=== PATIENT | female | born 1995 | race Caucasian/White ===

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

== ENCOUNTER → 2017-01-24 | Outpatient (CLI) | payer OTHER ==
--- NOTE | 2017-01-24 09:41 | US ---
EXAMINATION TYPE: US OB >= 14 wk fetus DATE OF EXAM: 01/24/2017 COMPARISON: None CLINICAL HISTORY: Z34.80 Supervision of Normal Growth and kidneys TECHNIQUE: GESTATIONAL AGE / DATING Physician Established: (34 weeks/3 days) EDC: 03/04/2017 Dates by Current Scan: (34 weeks/5 days) EDC: 03/02/2017 SURVEY IUP: Single PLACENTA: Posterior/Right lateral PREVIA: No Previa JORGE: 21.5 cm Polyhydramnios CERVICAL LENGTH (transabdominal: norm > 3.0cm): 3.5 cm BIOMETRY PRESENTATION: Vertex BPD: 8.5 cm 34 weeks / 2 days HC: 32.0 cm 36 weeks / 0 days AC: 31.6 cm 35 weeks / 4 days FL: 6.4 cm 32 weeks / 6 days ESTIMATED WEIGHT IN GRAMS: 2510 grams ESTIMATED WEIGHT IN LBS/OZS: 5 lbs. 9 oz. WEIGHT PERCENTAGE BASED ON ESTABLISHED DATES: 55.0% HC/AC: 1.0 Normal FL/AC: 20.1 Normal HEART RATE: 123 bpm RHYTHM: Normal Bilateral dilated renal pelvis. Right- 7.8 mm. Left- 7.8 mm. IMPRESSION: PETERS FETUS PRESENT IN A VERTEX LIE WITH A GESTATIONAL AGE OF 34 WEEKS 5 DAYS +/- 3 WEEKS. ESTIMA FUNMILAYO DATE OF CONFINEMENT BASED ON THIS EXAMINATION IS 03/02/2017. PLEASE NOTE THAT THERE ARE DILATED RENAL PELVES BILATERALLY. ULTRASOUND NO EARLIER THAN 48 HOURS POST WOULD BE SUGGESTED.
== END | disposition home or self-care (01) ==
LOC: RADUSWWP 07:45
PROVIDERS: ATTEND Obstetrics & Gynecology
DX: Z34.93 Encounter for supervision of normal pregnancy, unspecified, third trimester (principal); Z3A.34 34 weeks gestation of pregnancy
CPT/HCPCS: 76805

== ENCOUNTER → 2017-02-20 | Outpatient (CLI) | payer OTHER ==
--- NOTE | 2017-02-20 11:08 | US ---
EXAMINATION TYPE: US OB >= 14 wk fetus DATE OF EXAM: 02/20/2017 COMPARISON: 10/26/2016 CLINICAL HISTORY: Z34.90 Growth, patient did not fill for exam TECHNIQUE: OBTA GESTATIONAL AGE / DATING Physician Established: (38 weeks/6 days) EDC: 02/28/2017 Dates by LMP: (38 weeks/6 days) EDC: 02/28/2017 Dates by First Scan: (38 weeks/2 days) EDC: 03/04/2017 Dates by Current Scan: (38 weeks/4 days) EDC: 03/02/2017 SURVEY IUP: Single PLACENTA: Fundal PREVIA: No Previa JORGE: 11.5 cm Normal CERVICAL LENGTH (transabdominal: norm > 3.0cm): 3.2 cm BIOMETRY PRESENTATION: Vertex LIE: Longitudinal BPD: 8.9 cm 36 weeks / 1 days HC: 34.1 cm 39 weeks / 2 days AC: 36.5 cm 40 weeks / 3 days FL: 7.4 cm 38 weeks / 0 days ESTIMATED WEIGHT IN GRAMS: 3704 grams ESTIMATED WEIGHT IN LBS/OZS: 8 lbs. 3 oz. WEIGHT PERCENTAGE BASED ON ESTABLISHED DATES: 75% HC/AC: 0.9 Normal FL/AC: 20 Normal HEART RATE: 125 bpm RHYTHM: Normal Dilated renal pelvis bilaterally as noted on prior exam, patient has been assessed with high risk ult rasound, right = 0.9cm, left = 1.2cm IMPRESSION: Single live intrauterine with a sonographic age of 34 weeks and 4 days and estimated date o f delivery of 03/02/2017 on the current examination. Dates are concordant with prior imaging and menst rual dates. There is redemonstration of dilated renal pelvises bilaterally measuring 0.9 cm on the ri ght and 1.2 cm on the left.
== END | disposition home or self-care (01) ==
LOC: RADUSWWP 10:16
PROVIDERS: ATTEND Obstetrics & Gynecology
DX: Z34.90 Encounter for supervision of normal pregnancy, unspecified, unspecified trimester (principal); Z3A.38 38 weeks gestation of pregnancy
CPT/HCPCS: 76805

== ENCOUNTER → 2018-01-01 | Outpatient (CLI) | payer OTHER ==
[2018-01-01 12:28] LABS: Basophils # (A) 0.1 k/uL (0-0.2); Basophils % (A) 1 %; Eosinophils # (A) 0.2 k/uL (0-0.7); Eosinophils % (A) 3 %; HCT 42.1 % (34.0-46.0); HGB 13.8 gm/dL (11.4-16.0); Lymphocytes # (A) 2.7 k/uL (1.0-4.8); Lymphocytes % (A) 39 %; MCHC 32.7 g/dL (31.0-37.0); MCV 85.8 fL (80.0-100.0); Mean Platelet Volume 6.3; Monocytes # (A) 0.3 k/uL (0-1.0); Monocytes % (A) 5 %; Neutrophils # (A) 3.4 k/uL (1.3-7.7); Neutrophils % (A) 51 %; Platelet Count 296 k/uL (150-450); RBC 4.91 m/uL (3.80-5.40); RDW 12.9 % (11.5-15.5); WBC 6.8 k/uL (4.0-11.0)
[2018-01-01 12:52] LABS: ALT 22 U/L (9-52); AST 19 U/L (14-36); Albumin 3.9 g/dL (3.5-5.0); Alkaline Phosphatase 67 U/L (38-126); Anion Gap 10 mmol/L; Blood Urea Nitrogen 8 mg/dL (7-17); Calcium 9.2 mg/dL (8.4-10.2); Carbon Dioxide 24 mmol/L (22-30); Chloride 105 mmol/L (98-107); Cholesterol 141 mg/dL (<200); Glucose 86 mg/dL (74-99); HDL Cholesterol 52 mg/dL (40-60); LDL Cholesterol,Calculated 64 mg/dL (0-99); Potassium 4.5 mmol/L (3.5-5.1); Sodium 139 mmol/L (137-145); Total Bilirubin 0.3 mg/dL (0.2-1.3); Total Protein 6.5 g/dL (6.3-8.2); Triglycerides 124 mg/dL (<150)
== END | disposition home or self-care (01) ==
LOC: LABWHC1 11:49
PROVIDERS: ATTEND Family Medicine
DX: Z00.00 Encounter for general adult medical examination without abnormal findings (principal); R51 Headache; R41.3 Other amnesia; Z13.220 Encounter for screening for lipoid disorders; Z71.3 Dietary counseling and surveillance; Z71.82 Exercise counseling; Z68.54 Body mass index [BMI] pediatric, 95th percentile for age to less than 120% of the 95th percentile for age
CPT/HCPCS: 36415; 80053; 80061; 82306; 84443; 85025

== ENCOUNTER 2019-01-07 17:34 | Emergency (ER) | payer OTHER ==
[2019-01-07 17:59] VITALS: RESP 18
[2019-01-07] MEDS ORDERED: KETOROLAC 30 MG/ML 1 ML VIAL IVP STA (18:33)
[2019-01-07] MEDS ORDERED: SODIUM CHLORIDE 0.9% 1,000 ML IV ONE (18:33)
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
[2019-01-07 19:15] LABS: Basophils # (A) 0.1 k/uL (0-0.2); Basophils % (A) 1 %; Eosinophils # (A) 0.2 k/uL (0-0.7); Eosinophils % (A) 2 %; HCT 48.2 % (34.0-46.0); HGB 15.6 gm/dL (11.4-16.0); Lymphocytes # (A) 2.6 k/uL (1.0-4.8); Lymphocytes % (A) 34 %; MCH 28.7 pg (25.0-35.0); MCHC 32.5 g/dL (31.0-37.0); MCV 88.3 fL (80.0-100.0); Mean Platelet Volume 7.3; Monocytes # (A) 0.3 k/uL (0-1.0); Monocytes % (A) 4 %; Neutrophils # (A) 4.4 k/uL (1.3-7.7); Neutrophils % (A) 57 %; Platelet Count 303 k/uL (150-450); RBC 5.45 m/uL (3.80-5.40); RDW 14.8 % (11.5-15.5); WBC 7.7 k/uL (3.8-10.6)
[2019-01-07 19:21] LABS: African American GFR (CKD) >90 (>60 ml/min/1.73 sqM); Anion Gap 9 mmol/L; Blood Urea Nitrogen 8 mg/dL (7-17); Calcium 10.1 mg/dL (8.4-10.2); Carbon Dioxide 26 mmol/L (22-30); Chloride 108 mmol/L (98-107); Creatine Kinase 71 U/L (30-135); Glucose 83 mg/dL (74-99); Potassium 4.6 mmol/L (3.5-5.1); Sodium 143 mmol/L (137-145)
[2019-01-07 19:43] VITALS: BP 113/87; PULSE 73; TEMP 97.9
[2019-01-07 20:22] LABS: Appearance,Urine Clear (Clear); Bilirubin,Urine Negative (Negative); Blood,Urine Negative (Negative); Color,Urine Yellow; Glucose,Urine (UA) Negative (Negative); Ketones,Urine Negative (Negative); Leukocyte Esterase,Urine Negative (Negative); Nitrite,Urine Negative (Negative); Protein,Urine Negative (Negative); Specific Gravity,Urine 1.017 (1.001-1.035); Urobilinogen,Urine <2.0 mg/dL (<2.0)
== END 2019-01-07 21:04 | disposition home or self-care (01) ==
LOC: EC 17:34
DX: M25.531 Pain in right wrist (principal); M25.552 Pain in left hip; M25.551 Pain in right hip; Z79.1 Long term (current) use of non-steroidal anti-inflammatories (NSAID); Z88.0 Allergy status to penicillin; Z91.040 Latex allergy status
CPT/HCPCS: 36415; 80048; 82550; 85025; 81003; 81025; 99284; 96374; 96361 ×2; J1885

== ENCOUNTER 2019-07-28 04:35 | Emergency (ER) | payer OTHER ==
--- NOTE | 2019-07-28 04:54 | ED ---
Nausea/Vomiting/Diarrhea HPI - General Chief complaint: Nausea/Vomiting/Diarrhea Stated complaint: Pain,Nausea Time Seen by Provider: 07/28/19 04:52 Source: patient, RN notes reviewed, old records reviewed Mode of arrival: ambulatory Limitations: no limitations - History of Present Illness Initial comments: This is a 24-year-old female here for evaluation persistent nausea and vomiting no significant diarrhea generalized body aches and pains. No sick contacts no travel history. Denies chance of . Patient is had a decreased appetite for a few days not feeling well MD complaint: nausea, vomiting, abdominal pain -: hour(s) Description of Vomiting: food contents, watery Associated Abdominal Pain: Yes Location: diffuse Radiation: none Severity: mild Severity scale (1-10): 3 Quality: aching Consistency: constant Improves with: none Worsens with: none Context: sick contacts Associated Symptoms: denies other symptoms - Related Data Home Medications Medication Instructions Recorded Confirmed Ibuprofen [Motrin] 800 mg PO Q6H 01/07/19 01/07/19 Allergies Allergy/AdvReac Type Severity Reaction Status Date / Time latex Allergy Unknown Verified 07/28/19 04:44 Penicillins Allergy Unknown Verified 07/28/19 04:44 Childhood Review of Systems ROS Statement: Those systems with pertinent positive or pertinent negative responses have been documented in the HPI. ROS Other: All systems not noted in ROS Statement are negative. Past Medical History Past Medical History: No Reported History Additional Past Medical History / Comment(s): heart murmur, collpased lung History of Any Multi-Drug Resistant Organisms: MRSA Date of last positivie culture/infection: 2002 MDRO Source:: AXILLA Past Surgical History: Orthopedic Surgery Past Psychological History: Anxiety, Depression Smoking Status: Never smoker Past Alcohol Use History: None Reported Past Drug Use History: None Reported General Exam Limitations: no limitations General appearance: alert, in no apparent distress Head exam: Present: atraumatic, normocephalic, normal inspection Eye exam: Present: normal appearance, PERRL, EOMI. Absent: scleral icterus, conjunctival injection, periorbital swelling ENT exam: Present: normal exam, mucous membranes moist Neck exam: Present: normal inspection. Absent: tenderness, meningismus, lymphadenopathy Respiratory exam: Present: normal lung sounds bilaterally. Absent: respiratory distress, wheezes, rales, rhonchi, stridor Cardiovascular Exam: Present: regular rate, normal rhythm, normal heart sounds. Absent: systolic murmur, diastolic murmur, rubs, gallop, clicks GI/Abdominal exam: Present: soft, normal bowel sounds. Absent: distended, tenderness, guarding, rebound, rigid Extremities exam: Present: normal inspection, full ROM, normal capillary refill. Absent: tenderness, pedal edema, joint swelling, calf tenderness Back exam: Present: normal inspection Neurological exam: Present: alert, oriented X3, CN II-XII intact Psychiatric exam: Present: normal affect, normal mood Skin exam: Present: warm, dry, intact, normal color. Absent: rash Course Vital Signs 07/28/19 07/28/19 04:45 06:30 Temperature 97.9 F 98 F Pulse Rate 78 79 Respiratory 14 16 Rate Blood Pressure 124/77 120/70 O2 Sat by Pulse 100 99 Oximetry - Reevaluation(s) Reevaluation #1: medical record is reviewed symptoms improved, no acute findings ok for discharge Medical Decision Making - Medical Decision Making 24 female here for evaluation nausea vomiting body aches pains and chills recent fevers. Labwork normal studies are normal here in the ER patient can be d ischarged home - Lab Data Result diagrams: 07/28/19 05:42 07/28/19 05:42 Lab Results 07/28/19 07/28/19 07/28/19 Range/Units 05:10 05:42 05:42 WBC 10.9 H (3.8-10.6) k/uL RBC 5.24 (3.80-5.40) m/uL Hgb 15.1 (11.4-16.0) gm/dL Hct 47.0 H (34.0-46.0) % MCV 89.5 (80.0-100.0) fL MCH 28.8 (25.0-35.0) pg MCHC 32.1 (31.0-37.0) g/dL RDW 12.4 (11.5-15.5) % Plt Count 324 (150-450) k/uL Neutrophils % 59 % Lymphocytes % 31 % Monocytes % 6 % Eosinophils % 1 % Basophils % 1 % Neutrophils # 6.5 (1.3-7.7) k/uL Lymphocytes # 3.3 (1.0-4.8) k/uL Monocytes # 0.6 (0-1.0) k/uL Eosinophils # 0.2 (0-0.7) k/uL Basophils # 0.1 (0-0.2) k/uL Sodium 143 (137-145) mmol/L Potassium 4.5 (3.5-5.1) mmol/L Chloride 105 (98-107) mmol/L Carbon Dioxide 27 (22-30) mmol/L Anion Gap 11 mmol/L BUN 9 (7-17) mg/dL Creatinine 0.54 (0.52-1.04) mg/dL Est GFR (CKD-EPI)AfAm >90 (>60 ml/min/1.73 sqM) Est GFR (CKD-EPI)NonAf >90 (>60 ml/min/1.73 sqM) Glucose 90 (74-99) mg/dL Calcium 9.6 (8.4-10.2) mg/dL Phosphorus 3.3 (2.5-4.5) mg/dL Magnesium 1.9 (1.6-2.3) mg/dL Total Bilirubin 0.7 (0.2-1.3) mg/dL AST 34 (14-36) U/L ALT 20 (4-34) U/L Alkaline Phosphatase 50 (38-126) U/L Total Protein 7.9 (6.3-8.2) g/dL Albumin 4.7 (3.5-5.0) g/dL Urine Color Urine Appearance (Clear) Urine pH (5.0-8.0) Ur Specific Avalon (1.001-1.035) Urine Protein (Negative) Urine Glucose (UA) (Negative) Urine Ketones (Negative) Urine Blood (Negative) Urine Nitrite (Negative) Urine Bilirubin (Negative) Urine Urobilinogen (<2.0) mg/dL Ur Leukocyte Esterase (Negative) Urine HCG, Qual (Not Detectd) Influenza Type A RNA Not Detected (Not Detectd) Influenza Type B (PCR) Not Detected (Not Detectd) 07/28/19 07/28/19 Range/Units 05:42 05:42 WBC (3.8-10.6) k/uL RBC (3.80-5.40) m/uL Hgb (11.4-16.0) gm/dL Hct (34.0-46.0) % MCV (80.0-100.0) fL MCH (25.0-35.0) pg MCHC (31.0-37.0) g/dL RDW (11.5-15.5) % Plt Count (150-450) k/uL Neutrophils % % Lymphocytes % % Monocytes % % Eosinophils % % Basophils % % Neutrophils # (1.3-7.7) k/uL Lymphocytes # (1.0-4.8) k/uL Monocytes # (0-1.0) k/uL Eosinophils # (0-0.7) k/uL Basophils # (0-0.2) k/uL Sodium (137-145) mmol/L Potassium (3.5-5.1) mmol/L Chloride (98-107) mmol/L Carbon Dioxide (22-30) mmol/L Anion Gap mmol/L BUN (7-17) mg/dL Creatinine (0.52-1.04) mg/dL Est GFR (CKD-EPI)AfAm (>60 ml/min/1.73 sqM) Est GFR (CKD-EPI)NonAf (>60 ml/min/1.73 sqM) Glucose (74-99) mg/dL Calcium (8.4-10.2) mg/dL Phosphorus (2.5-4.5) mg/dL Magnesium (1.6-2.3) mg/dL Total Bilirubin (0.2-1.3) mg/dL AST (14-36) U/L ALT (4-34) U/L Alkaline Phosphatase (38-126) U/L Total Protein (6.3-8.2) g/dL Albumin (3.5-5.0) g/dL Urine Color Light Yellow Urine Appearance Clear (Clear) Urine pH 7.5 (5.0-8.0) Ur Specific [place]on 1.008 (1.001-1.035) Urine Protein Negative (Negative) Urine Glucose (UA) Negative (Negative) Urine Ketones Negative (Negative) Urine Blood Negative (Negative) Urine Nitrite Negative (Negative) Urine Bilirubin Negative (Negative) Urine Urobilinogen <2.0 (<2.0) mg/dL Ur Leukocyte Esterase Negative (Negative) Urine HCG, Qual Not Detected (Not Detectd) Influenza Type A RNA (Not Detectd) Influenza Type B (PCR) (Not Detectd) Disposition Clinical Impression: Viral syndrome, Dehydration, Gastroenteritis Disposition: HOME SELF-CARE Condition: Good Instructions (If sedation given, give patient instructions): Acute Nausea and Vomiting (ED) Is patient prescribed a controlled substance at d/c from ED?: No Referrals: Maisha Daniel MD [Primary Care Provider] - 1-2 days
[2019-07-28] MEDS ORDERED: SODIUM CHLORIDE 0.9% 1,000 ML IV STA ×2 (05:38→05:39)
[2019-07-28 06:07] LABS: Basophils # (A) 0.1 k/uL (0-0.2); Basophils % (A) 1 %; Eosinophils # (A) 0.2 k/uL (0-0.7); Eosinophils % (A) 1 %; HGB 15.1 gm/dL (11.4-16.0); Lymphocytes # (A) 3.3 k/uL (1.0-4.8); Lymphocytes % (A) 31 %; MCH 28.8 pg (25.0-35.0); MCHC 32.1 g/dL (31.0-37.0); MCV 89.5 fL (80.0-100.0); Mean Platelet Volume 7.2; Monocytes # (A) 0.6 k/uL (0-1.0); Monocytes % (A) 6 %; Neutrophils # (A) 6.5 k/uL (1.3-7.7); Neutrophils % (A) 59 %; Platelet Count 324 k/uL (150-450); RBC 5.24 m/uL (3.80-5.40); RDW 12.4 % (11.5-15.5); WBC 10.9 k/uL (3.8-10.6)
[2019-07-28 06:08] LABS: Appearance,Urine Clear (Clear); Bilirubin,Urine Negative (Negative); Blood,Urine Negative (Negative); Color,Urine Light Yellow; Glucose,Urine (UA) Negative (Negative); Ketones,Urine Negative (Negative); Leukocyte Esterase,Urine Negative (Negative); Nitrite,Urine Negative (Negative); PH, Urine 7.5 (5.0-8.0); Protein,Urine Negative (Negative); Specific Gravity,Urine 1.008 (1.001-1.035); Urobilinogen,Urine <2.0 mg/dL (<2.0)
[2019-07-28 06:15] LABS: African American GFR (CKD) >90 (>60 ml/min/1.73 sqM); Albumin 4.7 g/dL (3.5-5.0); Anion Gap 11 mmol/L; Calcium 9.6 mg/dL (8.4-10.2); Carbon Dioxide 27 mmol/L (22-30); Chloride 105 mmol/L (98-107); Glucose 90 mg/dL (74-99); Non-African American GFR(CKD) >90 (>60 ml/min/1.73 sqM); Phosphorus 3.3 mg/dL (2.5-4.5); Sodium 143 mmol/L (137-145); Total Bilirubin 0.7 mg/dL (0.2-1.3); Total Protein 7.9 g/dL (6.3-8.2)
[2019-07-28 06:16] LABS: ALT 20 U/L (4-34); AST 34 U/L (14-36); Alkaline Phosphatase 50 U/L (38-126); Blood Urea Nitrogen 9 mg/dL (7-17); Magnesium 1.9 mg/dL (1.6-2.3); Potassium 4.5 mmol/L (3.5-5.1)
[2019-07-28 06:31] VITALS: BP 120/70; PULSE 79; RESP 16; TEMP 98
== END 2019-07-28 06:39 | disposition home or self-care (01) ==
LOC: EC 04:35
DX: A08.4 Viral intestinal infection, unspecified (principal); E86.0 Dehydration; Z88.0 Allergy status to penicillin; Z91.040 Latex allergy status; Z79.1 Long term (current) use of non-steroidal anti-inflammatories (NSAID); Z86.14 Personal history of Methicillin resistant Staphylococcus aureus infection
CPT/HCPCS: 36415; 80053; 81003; 81025; 83735; 84100; 85025; 87502; 96360; 99284

== ENCOUNTER 2020-03-18 11:01 | Outpatient (CLI) | payer OTHER ==
[2020-03-18 11:39] LABS: Glucose,Whole Blood 86 mg/dL (75-99)
[2020-03-18 13:25] VITALS: BP 105/56; PULSE 83; RESP 18; TEMP 98.1
== END 2020-03-18 12:36 ==
LOC: FBPOP 11:01
PROVIDERS: ATTEND Obstetrics & Gynecology
DX: O26.92 Pregnancy related conditions, unspecified, second trimester (principal); Z3A.27 27 weeks gestation of pregnancy
CPT/HCPCS: 99213

== ENCOUNTER 2020-04-07 21:52 | Outpatient (CLI) | payer OTHER ==
[2020-04-07 23:13] VITALS: BP 122/63; PULSE 81; RESP 16; TEMP 97
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
== END 2020-04-07 22:47 | disposition home or self-care (01) ==
LOC: FBPOP 21:52
PROVIDERS: ATTEND Obstetrics & Gynecology
DX: O47.03 False labor before 37 completed weeks of gestation, third trimester (principal); Z3A.30 30 weeks gestation of pregnancy
CPT/HCPCS: 59025; 84112; G0463; 99213

== ENCOUNTER 2020-06-12 00:41 | Inpatient (IN) | payer OTHER ==
[2020-06-12] MEDS ORDERED: CITRIC ACID-SODIUM CITRATE 15 ML CUP PO ONE (01:49)
[2020-06-12] MEDS ORDERED: LACTATED RINGERS 1,000 ML IV ONE (01:49)
[2020-06-12] MEDS ORDERED: CLINDAMYCIN 900 MG in DEXTROSE 5% IN WATER 50 ML IVPB ONE ×2 (01:49)
[2020-06-12] MEDS ORDERED: GENTAMICIN 300 MG in SODIUM CHLORIDE 0.9% 100 ML IVPB ONE (01:49)
[2020-06-12] MEDS: LACTATED RINGERS 1,000 ML IV SCH ×5 (02:54→18:28)
[2020-06-12 03:51] LABS: Basophils % (A) 1 %; Eosinophils # (A) 0.1 k/uL (0-0.7); Eosinophils % (A) 1 %; HCT 40.8 % (34.0-46.0); HGB 13.8 gm/dL (11.4-16.0); Lymphocytes # (A) 1.9 k/uL (1.0-4.8); Lymphocytes % (A) 25 %; MCH 31.3 pg (25.0-35.0); MCHC 33.8 g/dL (31.0-37.0); MCV 92.5 fL (80.0-100.0); Mean Platelet Volume 7.3; Monocytes # (A) 0.4 k/uL (0-1.0); Monocytes % (A) 5 %; Neutrophils # (A) 5.1 k/uL (1.3-7.7); Neutrophils % (A) 67 %; Platelet Count 192 k/uL (150-450); RBC 4.41 m/uL (3.80-5.40); RDW 13.2 % (11.5-15.5); WBC 7.6 k/uL (3.8-10.6)
[2020-06-12] MEDS ORDERED: MORPHINE SULFATE (PF) 0.3 MG/0.3 ML SYR ONE (04:06)
[2020-06-12] MEDS ORDERED: OXYTOCIN 10 UNIT/ML 1 ML VIAL ONE (04:06)
[2020-06-12] MEDS ORDERED: ONDANSETRON 4 MG/2 ML VIAL ONE (04:06)
[2020-06-12] MEDS ORDERED: NALBUPHINE 10 MG/ML (1 ML AMP) ONE (04:06)
[2020-06-12] MEDS ORDERED: diphenhydrAMINE 25 MG CAP PO PRN (04:54)
[2020-06-12] MEDS ORDERED: METOCLOPRAMIDE 5 MG/ML 2 ML VIAL IVP PRN (04:54)
[2020-06-12] MEDS ORDERED: diphenhydrAMINE 50 MG CAP PO PRN (04:54)
[2020-06-12] MEDS ORDERED: ACETAMINOPHEN TAB 325 MG TAB PO PRN (04:54)
[2020-06-12] MEDS ORDERED: ONDANSETRON 4 MG/2 ML VIAL IVP PRN (04:54)
[2020-06-12] MEDS ORDERED: ZOLPIDEM 5 MG TAB PO PRN (04:54)
[2020-06-12] MEDS ORDERED: diphenhydrAMINE 50 MG/ML 1 ML VIAL IVP PRN ×2 (04:54)
[2020-06-12] MEDS ORDERED: NALOXONE 0.4 MG/ML 1 ML VIAL IV PRN (04:54)
[2020-06-12] MEDS ORDERED: ACETAMINOPHEN IV (For NPO) 1,000 MG in EMPTY BAG 1 BAG IVPB ONE (04:54)
[2020-06-12] MEDS ORDERED: IBUPROFEN IV 800 MG in SODIUM CHLORIDE 0.9% 250 ML IV ONE (04:56)
[2020-06-12] MEDS ORDERED: OXYTOCIN 20 UNITS/1000 ML NS 1,000 ML IV SCH (05:00)
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
--- NOTE | 2020-06-12 05:14 | P.OP ---
Date of Procedure: 06/12/20 Preoperative Diagnosis: IUP at 30 and 5/7, labor, history of 1, desires repeat Postoperative Diagnosis: Same Procedure(s) Performed: Repeat section Anesthesia: spinal Surgeon: Corina Snyder Silverware Etcher #1: Luiza Carrillo Estimated Blood Loss (ml): 300 IV fluids (ml): 1,000 Urine output (ml): 100 Pathology: other (Placenta) Condition: stable Disposition: observation Indications for Procedure: This is a 24-year-old at 39-5/7 weeks that presents to labor and delivery with regular painful contractions, patient is scheduled for repeat section later today at 10 AM. Operative Findings: Normal uterus tubes and ovaries are appreciated, viable male infant delivered at 425, weight of 7 lbs. 9 oz. and Apgars of 8 and 9 at one and 5 minutes respect daily. Description of Procedure: Patient was taken back to the operating suite where spinal anesthesia was obtained without difficulty by the anesthesia . She is prepped and draped in the normal sterile fashion in the dorsal supine position. A Pfannenstiel skin incision was made the scalpel and carried through the underlying layer fascia. The fascia was then incised in the midline and extended laterally. The superior aspect of the fascial incision was then grasped with Pachuta clamps, elevated and underlying rectus muscle was dissected off sharply. The inferior aspect of the fascial incision was then grasped eliza clamps, elevated and underlying rectus muscles dissected off sharply once again. The rectus muscles were in the midline the peritoneum was identified and entered. The bladder blade was inserted into the pelvis the vesicouterine peritoneum was identified and the bladder flap was created. Hysterotomy incision was made with the scalpel amniotomy is performed clear fluid was obtained. The was encountered in an occiput posterior presentation delivered in the usual fashion, local cord was doubly clamped and cut. Infant was handed off to awaiting RN. Placenta was delivered manually and the uterus cleared of all clots and debris. Uterine incision was closed 0 Vicryl in a running locked fashion, along with a second layer of impeding suture. Hemostasis was appreciated. The pelvis then copiously irrigated and the uterus was returned to the abdomen. The gutters were cleared of all clots and debris. Small amount bleeding was noted, therefore Surgicel was placed along the hysterotomy incision. Hemostasis was then appreciated. The fascia was then closed with 0 Vicryl in a running fashion from one lateral edge the midline and the other lateral edge the midline. Subcu tissue was irrigated and found to be hemostatic. The subcu tissues closed with 3-0 Vicryl in a running fashion. The skin was then closed with 4-0 Vicryl in a septic she can fashion. Steri strips and sterile dressings were applied. All counts were noted be correct 2 then the procedure. Patient and infant tolerated procedure well.
[2020-06-12] MEDS ORDERED: Rhogam IMMUNE GLOBULIN 1,500 UNIT/1 ML IM ONE (12:02)
[2020-06-12] MEDS: SENNOSIDES-DOCUSATE SODIUM 1 EACH TAB PO SCH ×2 (17:47→20:17)
[2020-06-12] MEDS: IBUPROFEN 600 MG TAB PO PRN (18:15)
[2020-06-12] MEDS: SIMETHICONE 80 MG CHEWABLE PO PRN (22:01)
[2020-06-12] MEDS: HYDROcodone/APAP 5-325MG 1 EACH TAB PO PRN (22:01)
[2020-06-13] MEDS: PRENATAL VIT-IRON-FOLIC ACID 1 EACH CAP PO SCH (00:54)
[2020-06-13] MEDS: IBUPROFEN 600 MG TAB PO PRN ×3 (05:40→17:38)
[2020-06-13 07:53] LABS: Basophils % (A) 0 %; Eosinophils % (A) 0 %; HCT 35.8 % (34.0-46.0); Lymphocytes # (A) 1.6 k/uL (1.0-4.8); Lymphocytes % (A) 16 %; MCHC 33.5 g/dL (31.0-37.0); MCV 92.4 fL (80.0-100.0); Monocytes # (A) 0.4 k/uL (0-1.0); Monocytes % (A) 5 %; Neutrophils # (A) 7.5 k/uL (1.3-7.7); Neutrophils % (A) 78 %; Platelet Count 159 k/uL (150-450); RBC 3.87 m/uL (3.80-5.40); RDW 13.2 % (11.5-15.5); WBC 9.6 k/uL (3.8-10.6)
[2020-06-13] MEDS: SENNOSIDES-DOCUSATE SODIUM 1 EACH TAB PO SCH ×2 (08:30→22:23)
[2020-06-13] MEDS: HYDROcodone/APAP 5-325MG 1 EACH TAB PO PRN ×3 (08:31→22:21)
--- NOTE | 2020-06-13 09:10 | P.PN ---
Subjective Progress Note Date: 06/13/20 Principal diagnosis: Doing well postoperative day #1 Positive flatus. Minimal pain. Minimal lochia rubra. No complaints Objective - Vital Signs Vital signs: Vital Signs Temp 97.6 F 06/13/20 04:00 Pulse 76 06/13/20 04:00 Resp 16 06/13/20 04:00 BP 98/68 06/13/20 04:00 Pulse Ox 100 06/13/20 04:00 Intake & Output 06/12/20 06/13/20 06/13/20 18:59 06:59 18:59 Intake Total 1200 Output Total 775 250 Balance 425 -250 Intake: IV 1000 Oral 200 Output: Urine 775 250 Other: Voiding Method Indwelling Catheter - Constitutional General appearance: Present: average body habitus, cooperative - EENT Eyes: Present: PERRLA ENT: Present: hearing grossly normal - Neck Neck: Present: normal ROM - Respiratory Respiratory: bilateral: CTA - Cardiovascular Rhythm: regular - Gastrointestinal General gastrointestinal: Present: normal bowel sounds - Integumentary Integumentary Comment(s): Incision clean and dry, intact, Steri-Strips applied. Fundus firm, midline, symmetric, 18 week size. - Neurologic Neurologic: Present: CNII-XII intact - Musculoskeletal Musculoskeletal: Present: gait normal, strength equal bilaterally - Psychiatric Psychiatric Comment(s): Patient appears rather slow in her mentation. Pleasant and cooperative. Psychiatric: Present: A&O x's 3 - Labs CBC & Chem 7: 06/13/20 06:59 Assessment and Plan Assessment: Doing well postoperative day #1 Plan: Advance diet and activity. Continue postoperative care. Likely discharge home tomorrow. Time with Patient: Less than 30
[2020-06-13] MEDS: SIMETHICONE 80 MG CHEWABLE PO PRN ×3 (11:09→22:22)
[2020-06-14] MEDS: PRENATAL VIT-IRON-FOLIC ACID 1 EACH CAP PO SCH (01:30)
[2020-06-14] MEDS: HYDROcodone/APAP 5-325MG 1 EACH TAB PO PRN ×2 (05:30→10:39)
[2020-06-14] MEDS: IBUPROFEN 600 MG TAB PO PRN (07:50)
[2020-06-14] MEDS: SENNOSIDES-DOCUSATE SODIUM 1 EACH TAB PO SCH (07:50)
[2020-06-14 08:15] VITALS: BP 109/53; PULSE 69; RESP 18; TEMP 97.9
--- NOTE | 2020-06-14 10:01 | P.DS ---
Providers Date of admission: 06/12/20 01:40 Expected date of discharge: 06/14/20 Attending physician: Shaq Schwartz Primary care physician: Stated None Hospital Course: This is a 24-year-old white female 2 para 1001 EDC 06/14/2020 at 39-5/7 weeks' gestation who presented in active labor. Her history is significant for blood type O-, group B strep cultures negative, rubella status immune, but positive recent Kovic 19 testing. Please see dictated history and physical for details. Patient underwent a repeat low transverse section giving to a liveborn male with scores of 8 and 9 at one and 5 minutes respectively. He weighed 7 lbs. 9 oz. or 3430 g. Surgery was otherwise unremarkable with an estimated blood loss of 300 mL's. Please see dictated operative note for details. This morning the patient is doing well. She is voiding, ambulating, passing flatus without difficulty. Vital signs are stable and she is afebrile. Incision is clean and dry, intact, Steri-Strips applied. Fundus is firm, midline, symmetric, 18 week size. Breasts are not engorged. has left the premises for foster care placement at this time, social worker clinical following the patient closely. Patient herself is judged to be in good condition for discharge home. Her Kovic symptomatology is minimal at this time. She will follow-up with Dr. Schwartz in the office in 2 weeks. She is reminded no intercourse, tampons or douching. She will use [id number] Advil or Aleve, or Motrin as needed for pain. She'll call with any fevers shakes or chills, foul smelling or copious lochia, with the passage of large blood clots, with any pain not alleviated by [id number] products, or indeed with any concerns. We've briefly discussed options for contraception and she will discuss this further in the office. Assessment: Doing well postoperative day #2 Health Concerns: Positive covid 19 testing Patient Condition at Discharge: Good Plan - Discharge Summary Discharge Rx Participant: No New Discharge Prescriptions: No Action Pnv,Calcium 72/Iron/Folic Acid [ Plus Tablet] 1 each PO HS Calcium Carbonate [Tums] 500 mg PO TID PRN PRN Reason: reflux Discharge Medication List Pnv,Calcium 72/Iron/Folic Acid [ Plus Tablet] 1 each PO HS 03/18/20 [History] Calcium Carbonate [Tums] 500 mg PO TID PRN 06/11/20 [History] Follow up Appointment(s)/Referral(s): [facility]PS, ON-CALL [Other] - 2 Weeks (Cristiana MANCILLA (P: [phone]) Thai Poon (P: [phone]) [facility] Writing Center Director is Alysa Mata (P: [phone])) Discharge/Stand Alone Forms: Community Resources, Outpatient Counseling
== END 2020-06-14 12:39 | disposition home or self-care (01) | DRG 786 ==
LOC: FBPOP 00:41 → 4FBP 01:40
PROVIDERS: ADMIT Obstetrics & Gynecology Obstetrics; ATTEND Obstetrics & Gynecology
PROC: 10D00Z1 Extraction of Products of Conception, Low, Open Approach (ICD-10-PCS; principal; 2020-06-12)
DX: O34.211 Maternal care for low transverse scar from previous cesarean delivery (principal); U07.1 COVID-19; O98.52 Other viral diseases complicating childbirth; Z37.0 Single live birth; Z3A.39 39 weeks gestation of pregnancy; Z86.14 Personal history of Methicillin resistant Staphylococcus aureus infection; Z88.0 Allergy status to penicillin; Z91.040 Latex allergy status; Z87.81 Personal history of (healed) traumatic fracture; Z86.59 Personal history of other mental and behavioral disorders; Z80.9 Family history of malignant neoplasm, unspecified
CPT/HCPCS: 59025; 85025; 85461; 86850; 86900; 86901; 99213

== ENCOUNTER 2021-01-26 03:54 | Emergency (ER) | payer OTHER ==
[2021-01-26] MEDS ORDERED: PROPARACAINE 0.5% OPHTH DROPS 15 ML BTL LEFT EYE STA (04:24)
[2021-01-26] MEDS ORDERED: KETOROLAC 15 MG/ML 1 ML VIAL IVP STA (04:48)
[2021-01-26] MEDS ORDERED: DEXAMETHASONE SOD PHOSPHATE 10 MG/ML 1 ML VIAL IV STA (04:48)
[2021-01-26] MEDS ORDERED: SODIUM CHLORIDE 0.9% 1,000 ML IV STA (04:48)
[2021-01-26] MEDS ORDERED: diphenhydrAMINE 50 MG/ML 1 ML VIAL IVP STA (04:48)
--- NOTE | 2021-01-26 04:50 | ED ---
ENT HPI - General Chief complaint: ENT Stated complaint: ENT Time Seen by Provider: 01/26/21 03:55 Source: patient, RN notes reviewed, old records reviewed Mode of arrival: ambulatory Limitations: no limitations - History of Present Illness Initial comments: This is a 25-year-old female DF for evaluation patient Dese for evaluation regards to let pain mild pain tongue pain weakness. Patient has no fevers no recent sick contacts no travel history no change in medications. Patient states she's been increasingly fatigued lately and is concerned over these ulcerations on her mouth and lips as well as her tongue pain. He takes no medications is no sick contacts or travel history MD complaint: difficulty swallowing -: days(s) Location: tongue, upper lip Severity: mild Severity scale (1-10): 1 Quality: aching Improves with: none Worsens with: none Context- Dental: other (none) Associated Symptoms: other (none) - Related Data Home Medications Medication Instructions Recorded Confirmed Pnv,Calcium 72/Iron/Folic Acid 1 each PO HS 03/18/20 06/12/20 [ Plus Tablet] Calcium Carbonate [Tums] 500 mg PO TID PRN 06/11/20 06/12/20 Allergies Allergy/AdvReac Type Severity Reaction Status Date / Time latex Allergy Rash/Hives Verified 01/26/21 04:06 Penicillins Allergy Dyspnea Verified 01/26/21 04:06 Review of Systems ROS Statement: Those systems with pertinent positive or pertinent negative responses have been documented in the HPI. ROS Other: All systems not noted in ROS Statement are negative. Past Medical History Past Medical History: No Reported History Additional Past Medical History / Comment(s): anemia,heart murmur, collpased lung had chest tube & fx back L2,L3,L4 from [facility] History of Any Multi-Drug Resistant Organisms: MRSA Date of last positivie culture/infection: 2002 MDRO Source:: AXILLA Past Surgical History: Orthopedic Surgery Additional Past Surgical History / Comment(s): ORIF rt arm, brain bleed Past Anesthesia/Blood Transfusion Reactions: No Reported Reaction Additional Past Anesthesia/Blood Transfusion Reaction / Comment(s): no hx blood transfusion complications Past Psychological History: Anxiety, Depression Smoking Status: Never smoker Past Alcohol Use History: Occasional Past Drug Use History: Marijuana - Past Family History Mother Family Medical History: Cancer Father History Unknown: Yes General Exam Limitations: no limitations General appearance: alert, in no apparent distress Head exam: Present: atraumatic, normocephalic, normal inspection Eye exam: Present: normal appearance, PERRL, EOMI. Absent: scleral icterus, conjunctival injection, periorbital swelling ENT exam: Present: normal exam, mucous membranes moist Neck exam: Present: normal inspection. Absent: tenderness, meningismus, lymphadenopathy Respiratory exam: Present: normal lung sounds bilaterally. Absent: respiratory distress, wheezes, rales, rhonchi, stridor Cardiovascular Exam: Present: regular rate, normal rhythm, normal heart sounds. Absent: systolic murmur, diastolic murmur, rubs, gallop, clicks GI/Abdominal exam: Present: soft, normal bowel sounds. Absent: distended, tenderness, guarding, rebound, rigid Extremities exam: Present: normal inspection, full ROM, normal capillary refill. Absent: tenderness, pedal edema, joint swelling, calf tenderness Back exam: Present: normal inspection Neurological exam: Present: alert, oriented X3, CN II-XII intact Psychiatric exam: Present: normal affect, normal mood Skin exam: Present: warm, dry, intact, normal color. Absent: rash Course Vital Signs 01/26/21 04:01 Temperature 98.6 F Pulse Rate 98 Respiratory 20 Rate Blood Pressure 128/81 O2 Sat by Pulse 99 Oximetry - Reevaluation(s) Reevaluation #1: 01/26/21 06:28 Medical record is reviewed Reevaluation #2: 01/26/21 06:28 Patient informed results and questions answered Reevaluation #3: 01/26/21 06:28 A she has no real significant improvement of symptoms but is in no acute distress Medical Decision Making - Medical Decision Making 25 female to the ER for evaluation of multiple complaints, mouth pain. Her last 2 day haven't filled with fatigue. Patient's lab values are normal testing is normal here in the ER she can be discharged home - Lab Data Result diagrams: 01/26/21 04:54 01/26/21 04:54 Lab Results 01/26/21 01/26/21 01/26/21 Range/Units 04:54 04:54 05:54 WBC 8.5 (3.8-10.6) k/uL RBC 5.15 (3.80-5.40) m/uL Hgb 15.1 (11.4-16.0) gm/dL Hct 46.5 H (34.0-46.0) % MCV 90.3 (80.0-100.0) fL MCH 29.3 (25.0-35.0) pg MCHC 32.4 (31.0-37.0) g/dL RDW 12.8 (11.5-15.5) % Plt Count 311 (150-450) k/uL MPV 6.8 Neutrophils % 45 % Lymphocytes % 45 % Monocytes % 5 % Eosinophils % 2 % Basophils % 1 % Neutrophils # 3.9 (1.3-7.7) k/uL Lymphocytes # 3.8 (1.0-4.8) k/uL Monocytes # 0.4 (0-1.0) k/uL Eosinophils # 0.2 (0-0.7) k/uL Basophils # 0.1 (0-0.2) k/uL Sodium 145 (137-145) mmol/L Potassium 4.1 (3.5-5.1) mmol/L Chloride 109 H (98-107) mmol/L Carbon Dioxide 26 (22-30) mmol/L Anion Gap 10 mmol/L BUN 13 (7-17) mg/dL Creatinine 0.58 (0.52-1.04) mg/dL Est GFR (CKD-EPI)AfAm >90 (>60 ml/min/1.73 sqM) Est GFR (CKD-EPI)NonAf >90 (>60 ml/min/1.73 sqM) Glucose 106 H (74-99) mg/dL Calcium 9.6 (8.4-10.2) mg/dL Phosphorus 4.4 (2.5-4.5) mg/dL Magnesium 1.7 (1.6-2.3) mg/dL Creatine Kinase 66 (30-135) U/L C-Reactive Protein <0.5 (<1.0) mg/dL Urine Color Yellow Urine Appearance Clear (Clear) Urine pH 6.0 (5.0-8.0) Ur Specific [place] 1.026 (1.001-1.035) Urine Protein Negative (Negative) Urine Glucose (UA) Negative (Negative) Urine Ketones Negative (Negative) Urine Blood Negative (Negative) Urine Nitrite Negative (Negative) Urine Bilirubin Negative (Negative) Urine Urobilinogen <2.0 (<2.0) mg/dL Ur Leukocyte Esterase Trace H (Negative) Urine RBC 1 (0-5) /hpf Urine WBC 12 H (0-5) /hpf Ur Squamous Epith Cells 13 H (0-4) /hpf Amorphous Sediment Rare H (None) /hpf Urine Mucus Occasional H (None) /hpf Disposition Clinical Impression: Oral ulcer, Mouth pain, Weakness Disposition: HOME SELF-CARE Condition: Good Instructions (If sedation given, give patient instructions): Weakness (ED) Is patient prescribed a controlled substance at d/c from ED?: No Referrals: None,Stated [Primary Care Provider] - 1-2 days
[2021-01-26] MEDS: POLYMYXIN B-TRIMETHOPRIM SULF (10,000-1) OPHTH DROPS 10 ML BTL LEFT EYE STA (05:04)
[2021-01-26 05:07] LABS: Basophils # (A) 0.1 k/uL (0-0.2); Basophils % (A) 1 %; Eosinophils # (A) 0.2 k/uL (0-0.7); Eosinophils % (A) 2 %; HCT 46.5 % (34.0-46.0); HGB 15.1 gm/dL (11.4-16.0); Lymphocytes # (A) 3.8 k/uL (1.0-4.8); Lymphocytes % (A) 45 %; MCH 29.3 pg (25.0-35.0); MCHC 32.4 g/dL (31.0-37.0); MCV 90.3 fL (80.0-100.0); Mean Platelet Volume 6.8; Monocytes # (A) 0.4 k/uL (0-1.0); Monocytes % (A) 5 %; Neutrophils # (A) 3.9 k/uL (1.3-7.7); Neutrophils % (A) 45 %; Platelet Count 311 k/uL (150-450); RBC 5.15 m/uL (3.80-5.40); RDW 12.8 % (11.5-15.5); WBC 8.5 k/uL (3.8-10.6)
--- NOTE | 2021-01-26 05:27 | XR ---
EXAMINATION TYPE: XR chest 1V DATE OF EXAM: 01/26/2021 COMPARISON: 07/05/2016 HISTORY: Rib pain TECHNIQUE: Single view FINDINGS: Heart and mediastinum are normal. Lungs are clear. Diaphragm is normal. Bony thorax appears normal. IMPRESSION: Normal chest. No change.
[2021-01-26 06:04] LABS: African American GFR (CKD) >90 (>60 ml/min/1.73 sqM); Anion Gap 10 mmol/L; Blood Urea Nitrogen 13 mg/dL (7-17); C Reactive Protein <0.5 mg/dL (<1.0); Calcium 9.6 mg/dL (8.4-10.2); Carbon Dioxide 26 mmol/L (22-30); Chloride 109 mmol/L (98-107); Creatine Kinase 66 U/L (30-135); Glucose 106 mg/dL (74-99); Magnesium 1.7 mg/dL (1.6-2.3); Non-African American GFR(CKD) >90 (>60 ml/min/1.73 sqM); Phosphorus 4.4 mg/dL (2.5-4.5); Potassium 4.1 mmol/L (3.5-5.1); Sodium 145 mmol/L (137-145)
[2021-01-26 06:16] LABS: Amorphous Sediment,Urine Rare /hpf; Appearance,Urine Clear (Clear); Bilirubin,Urine Negative (Negative); Blood,Urine Negative (Negative); Color,Urine Yellow; Glucose,Urine (UA) Negative (Negative); Ketones,Urine Negative (Negative); Leukocyte Esterase,Urine Trace (Negative); Mucus,Urine Occasional /hpf; Nitrite,Urine Negative (Negative); Protein,Urine Negative (Negative); RBC,Urine 1 /hpf (0-5); Specific Gravity,Urine 1.026 (1.001-1.035); Squamous Epithelial Cell,Urine 13 /hpf (0-4); Urobilinogen,Urine <2.0 mg/dL (<2.0); WBC,Urine 12 /hpf (0-5)
[2021-01-26 06:56] VITALS: BP 121/66; PULSE 78; RESP 16; TEMP 98.9
== END 2021-01-26 06:56 | disposition home or self-care (01) ==
LOC: EC 03:54
DX: K12.1 Other forms of stomatitis (principal); R53.1 Weakness; F12.90 Cannabis use, unspecified, uncomplicated; Z88.0 Allergy status to penicillin; Z91.040 Latex allergy status
CPT/HCPCS: 36415; 80048; 82550; 83735; 84100; 85025; 86140; 81001; 87086; 71045; 99285; 96374; 96375 ×2; 96361; J1200; J1100; J1885

== ENCOUNTER 2021-07-25 20:19 | Emergency (ER) | payer OTHER ==
[2021-07-25 21:37] VITALS: BP 119/71; PULSE 78; TEMP 97.7
[2021-07-26] MEDS ORDERED: ONDANSETRON 4 MG ODT STARTER PACK 2 TAB BTL PO STA (00:02)
[2021-07-26 00:13] LABS: Appearance,Urine Clear (Clear); Bilirubin,Urine Negative (Negative); Blood,Urine Negative (Negative); Color,Urine Yellow; Glucose,Urine (UA) Negative (Negative); Ketones,Urine Negative (Negative); Leukocyte Esterase,Urine Negative (Negative); Nitrite,Urine Negative (Negative); PH, Urine 5.5 (5.0-8.0); Protein,Urine Negative (Negative); Specific Gravity,Urine 1.025 (1.001-1.035); Urobilinogen,Urine <2.0 mg/dL (<2.0)
--- NOTE | 2021-07-26 00:21 | ED ---
Abdominal Pain HPI - General Chief Complaint: Abdominal Pain Stated Complaint: Nausea,Headaches Time Seen by Provider: 07/25/21 23:27 Source: patient Mode of arrival: ambulatory - History of Present Illness Initial Comments: 26 year-old female patient and her friend presented to the emergency department to be tested for COVID. States they were exposed. She states that she has been feeling nauseated and vomiting with food intake. States he has had intermittent right upper quadrant abdominal pain. States symptoms have been going on for the last year. She states her symptoms are no worse than usual. She is unsure if she may be . She denies any hematemesis, hematochezia, or melena. Denies fever or chills. Denies starting any new medications or stopping any medication s. States she was told in the past that she may have changes to her ovaries concerning for ovarian cancer, she opted not to have surgery at the time. She has not followed up with her OBGYN since. - Related Data Home Medications Medication Instructions Recorded Confirmed Pnv,Calcium 72/Iron/Folic Acid 1 each PO HS 03/18/20 06/12/20 [ Plus Tablet] Calcium Carbonate [Tums] 500 mg PO TID PRN 06/11/20 06/12/20 Previous Rx's Medication Instructions Recorded Ondansetron [Zofran ODT] 4 mg PO Q8HR PRN #20 tab 07/26/21 Allergies Allergy/AdvReac Type Severity Reaction Status Date / Time latex Allergy Rash/Hives Verified 07/25/21 21:32 Penicillins Allergy Dyspnea Verified 07/25/21 21:32 Review of Systems ROS Statement: Those systems with pertinent positive or pertinent negative responses have been documented in the HPI. ROS Other: All systems not noted in ROS Statement are negative. Past Medical History Past Medical History: No Reported History Additional Past Medical History / Comment(s): anemia,heart murmur, collpased lung had chest tube & fx back L2,L3,L4 from [facility] History of Any Multi-Drug Resistant Organisms: MRSA Date of last positivie culture/infection: 2002 MDRO Source:: AX[facility]A Past Surgical History: Orthopedic Surgery Additional Past Surgical History / Comment(s): ORIF rt arm, brain bleed Past Anesthesia/Blood Transfusion Reactions: No Reported Reaction Additional Past Anesthesia/Blood Transfusion Reaction / Comment(s): no hx blood transfusion complications Past Psychological History: Anxiety, Depression Smoking Status: Never smoker Past Alcohol Use History: Occasional Past Drug Use History: None Reported - Past Family History Mother Family Medical History: Cancer Father History Unknown: Yes Course Vital Signs 07/25/21 21:33 Temperature 97.7 F Pulse Rate 78 Respiratory 84 H Rate Blood Pressure 119/71 O2 Sat by Pulse 99 Oximetry Medical Decision Making - Medical Decision Making 26-year-old female patient presented to the emergency department today requesting COVID-19 test. Patient is reporting chronic abdominal pain and n ausea going on for the last year. Physical examination revealed soft nontender abdomen. She is afebrile, vital signs. She tested negative for COVID-19. She did mention possible history of ovarian cancer. I did review records and it appears as though she had cervical changes rather than ovarian. Urinalysis is negative. She is not . She is discharged follow up with her primary care physician and SALES VICE PRESIDENT for recheck as soon as possible to address her chronic symptoms. Return parameters were discussed in detail. She verbalizes understanding and agrees with this plan. My attending is Dr. Mccall. - Lab Data Lab Results 07/25/21 07/25/21 07/25/21 Range/Units 21:40 23:50 23:50 Urine Color Yellow Urine Appearance Clear (Clear) Urine pH 5.5 (5.0-8.0) Ur Specific [place] 1.025 (1.001-1.035) Urine Protein Negative (Negative) Urine Glucose (UA) Negative (Negative) Urine Ketones Negative (Negative) Urine Blood Negative (Negative) Urine Nitrite Negative (Negative) Urine Bilirubin Negative (Negative) Urine Urobilinogen <2.0 (<2.0) mg/dL Ur Leukocyte Esterase Negative (Negative) Urine HCG, Qual Not Detected (Not Detectd) Coronavirus (PCR) Not Detected (Not Detectd) Disposition Clinical Impression: Chronic abdominal pain Disposition: HOME SELF-CARE Condition: Good Instructions (If sedation given, give patient instructions): Abdominal Pain (ED) Additional Instructions: You must follow up with your OBGYN and Primary Care Physician as soon as possible for further evaluation of your chronic abdominal pain. Call Monday for an appointment for both. Return to the emergency department for any new, worsening, or concerning symptoms. Prescriptions: Ondansetron [Zofran ODT] 4 mg PO Q8HR PRN #20 tab PRN Reason: Nausea Is patient prescribed a controlled substance at d/c from ED?: No Referrals: Pa Gómez MD [Primary Care Provider] - 1-2 days Time of Disposition: 00:21
[2021-07-26 07:27] VITALS: RESP 18
== END 2021-07-26 00:25 | disposition home or self-care (01) ==
LOC: EC 20:19
DX: G89.29 Other chronic pain (principal); R10.11 Right upper quadrant pain; Z20.822 Contact with and (suspected) exposure to COVID-19
CPT/HCPCS: 81003; 81025; 87635; 99284; S0119

== ENCOUNTER 2022-12-29 12:48 | Emergency (ER) | payer OTHER ==
[2022-12-29] MEDS ORDERED: SODIUM CHLORIDE 0.9% 500 ML 500 ML IV STA (13:16)
[2022-12-29] MEDS ORDERED: SODIUM CHLORIDE 0.9% 1,000 ML IV STA (13:16)
[2022-12-29] MEDS ORDERED: KETOROLAC 15 MG/ML 1 ML VIAL IVP STA (13:16)
--- NOTE | 2022-12-29 13:28 | ED ---
General Adult HPI - General Chief complaint: Abdominal Pain Stated complaint: Lower Right Stomach Pain Time Seen by Provider: 12/29/22 13:07 Source: patient, RN notes reviewed Mode of arrival: ambulatory Limitations: no limitations - History of Present Illness Initial comments: Patient 27-year-old female presented to the ER with a chief complaint of abdo dorothy pain. Patient states the pain started about 3-4 days ago located around her umbilicus to her right lower quadrant rating the pain a 5/10. She endorses intermittent nausea with food, denies vomiting. Patient states she has not had many bowel movements in the past couple of days. She admits to one episode of dark blood in her stool yesterday. Denies fevers and chills. Patient denies any abdominal surgeries besides c-sections. She is currently on Depo for contraception and denies the possibility of being . Denies chest pain, shortness of breath, or urinary symptoms. - Related Data Home Medications Medication Instructions Recorded Confirmed Vit No.180/Iron/Folic 1 each PO HS 03/18/20 06/12/20 [ Plus Tablet] Calcium Carbonate [Tums] 500 mg PO TID PRN 06/11/20 06/12/20 Previous Rx's Medication Instructions Recorded Ondansetron [Zofran ODT] 4 mg PO Q8HR PRN #20 tab 07/26/21 Allergies Allergy/AdvReac Type Severity Reaction Status Date / Time latex Allergy Rash/Hives Verified 12/29/22 13:05 Penicillins Allergy Dyspnea Verified 12/29/22 13:05 Review of Systems ROS Statement: Those systems with pertinent positive or pertinent negative responses have been documented in the HPI. ROS Other: All systems not noted in ROS Statement are negative. Past Medical History Past Medical History: No Reported History Additional Past Medical History / Comment(s): anemia,heart murmur, collpased lung had chest tube & fx back L2,L3,L4 from [facility] History of Any Multi-Drug Resistant Organisms: MRSA Date of last positivie culture/infection: 2002 MDRO Source:: AXILLA Past Surgical History: Orthopedic Surgery Additional Past Surgical History / Comment(s): ORIF rt arm, brain bleed Past Anesthesia/Blood Transfusion Reactions: No Reported Reaction Additional Past Anesthesia/Blood Transfusion Reaction / Comment(s): no hx blood transfusion complications Past Psychological History: Anxiety, Depression Smoking Status: Never smoker Past Alcohol Use History: Occasional Past Drug Use History: None Reported - Past Family History Mother Family Medical History: Cancer Father History Unknown: Yes General Exam Limitations: no limitations General appearance: alert, in no apparent distress Respiratory exam: Present: normal lung sounds bilaterally. Absent: respiratory distress, wheezes, rales, rhonchi, stridor Cardiovascular Exam: Present: regular rate, normal rhythm, normal heart sounds. Absent: systolic murmur, diastolic murmur, rubs, gallop, clicks GI/Abdominal exam: Present: soft, tenderness (periumbilical radiating to RLQ; RLQ tenderness to palpitation), normal bowel sounds, other (no guarding or rebound tenderness) Course Vital Signs 12/29/22 12/29/22 12/29/22 13:01 13:49 14:17 Temperature 98.1 F 98.4 F Pulse Rate 76 79 84 Respiratory 20 20 18 Rate Blood Pressure 129/81 134/80 123/73 O2 Sat by Pulse 99 99 98 Oximetry 12/29/22 12/29/22 12/29/22 14:47 15:21 15:24 Temperature 98.4 F Pulse Rate 81 101 H Respiratory 18 18 Rate Blood Pressure 123/73 101/61 O2 Sat by Pulse 98 95 Oximetry Medical Decision Making - Medical Decision Making Was pt. sent in by a medical professional or institution ([facility], MEDICAL RESEARCH TECH, urgent care, hospital, or snf...) When possible be specific @ -No Did you speak to anyone other than the patient for history (EMS, parent, family, police, friend...)? What history was obtained from this source @ -No Did you review nursing and triage notes (agree or disagree)? Why? @ -I reviewed and agree with nursing and triage notes Were old charts reviewed (outside hosp., previous admission, EMS record, old EKG, old radiological studies, urgent care reports/EKG's, snf records)? Report findings @ -Reviewed prior ROTARY ADJUSTER notes Differential Diagnosis (chest pain, altered mental status, abdominal pain women, abdominal pain men, vaginal bleeding, weakness, fever, dyspnea, syncope, headache, dizziness, GI bleed, back pain, seizure, CVA, palpatations, mental health, musculoskeletal)? @ -nDifferential Abdominal Pain Women: Appendicitis, Cholecystitis, diverticulosis, ischemic bowel, pancreatitis, hepatitis, UTI, gastroenteritis, AAA, incarcerated hernia, bowel obstruction, constipation, inflammatory bowel, hepatitis, peptic ulcer disease, splenic infarction, perforated viscus, vulvitis, ovarian torsion, PID, kidney stone, placenta abruption, this is not meant to be an all-inclusive listble EKG interpreted by me (3pts min.). @ -None X-rays interpreted by me (1pt min.). @ -None done CT interpreted by me (1pt min.). @ -CT abdomen and pelvis shows evidence of uterine mass versus uterine fibroid U/S interpreted by me (1pt. min.). @ -Ultrasounds close concerning mass within the uterus What testing was considered but not performed or refused? (CT, X-rays, U/S, labs)? Why? @ -None What meds were considered but not given or refused? Why? @ -None Did you discuss the management of the patient with other professionals (professionals i.e. , PA, MEDICAL RESEARCH TECH, lab, RT, psych nurse, social media designer, cat sitter, teacher, foreign policy officer, rn case manager hospice)? Give summary @ -No Was smoking cessation discussed for >3mins.? @ -No Was critical care preformed (if so, how long)? @ -No Were there social determinants of health that impacted care today? How? (Homelessness, low income, unemployed, alcoholism, drug addiction, transportation, low edu. Level, literacy, decrease access to med. care, snf, rehab)? @ -No Was there de-escalation of care discussed even if they declined (Discuss DNR or withdrawal of care, Hospice)? DNR status @ -No What co-morbidities impacted this encounter? (DM, HTN, Smoking, COPD, CAD, C ancer, CVA, ARF, Chemo, Hep., AIDS, mental health diagnosis, sleep apnea, morbid obesity)? @ -None Was patient admitted / discharged? Hospital course, mention meds given and route, prescriptions, significant lab abnormalities, going to OR and other pertinent info. @ -Discharged patient will follow-up with ROTARY ADJUSTER regarding possible uterine f ibroid a uterine mass she was given follow-up instructions and phone numbers. Undiagnosed new problem with uncertain prognosis? @ -[Yes Drug Therapy requiring intensive monitoring for toxicity (Heparin, Nitro, Insulin, Cardizem)? @ -No Were any procedures done? @ -No Diagnosis/symptom? @ -Uterine fibroid, possible mass Acute, or Chronic, or Acute on Chronic? @ -Acute Uncomplicated (without systemic symptoms) or Complicated (systemic symptoms)? @ -Uncomplicated Side effects of treatment? @ -No Exacerbation, Progression, or Severe Exacerbation? @ -No Poses a threat to life or bodily function? How? (Chest pain, [place], [place], pneumonia, PE, COPD, DKA, ARF, appy, cholecystitis, CVA, Diverticulitis, Homicidal, Suicidal, threat to staff... and all critical care pts) @ -No - Lab Data Result diagrams: 12/29/22 13:23 12/29/22 13: Lab Results 12/29/22 12/29/22 12/29/22 Range/Units 13: 13: 13: WBC 6.5 (3.8-10.6) k/uL RBC 5.13 (3.80-5.40) m/uL Hgb 15.8 (11.4-16.0) gm/dL Hct 46.4 H (34.0-46.0) % MCV 90.4 (80.0-100.0) fL MCH 30.7 (25.0-35.0) pg MCHC 34.0 (31.0-37.0) g/dL RDW 12.2 (11.5-15.5) % Plt Count 249 (150-450) k/uL MPV 7.1 Neutrophils % 54 % Lymphocytes % 38 % Monocytes % 4 % Eosinophils % 2 % Basophils % 1 % Neutrophils # 3.5 (1.3-7.7) k/uL Lymphocytes # 2.5 (1.0-4.8) k/uL Monocytes # 0.3 (0-1.0) k/uL Eosinophils # 0.1 (0-0.7) k/uL Basophils # 0.0 (0-0.2) k/uL Sodium 142 (137-145) mmol/L Potassium 4.4 (3.5-5.1) mmol/L Chloride 107 (98-107) mmol/L Carbon Dioxide 24 (22-30) mmol/L Anion Gap 11 mmol/L BUN 11 (7-17) mg/dL Creatinine 0.56 (0.52-1.04) mg/dL Est GFR (CKD-EPI)AfAm >90 (>60 ml/min/1.73 sqM) Est GFR (CKD-EPI)NonAf >90 (>60 ml/min/1.73 sqM) Glucose 105 H (74-99) mg/dL Calcium 9.8 (8.4-10.2) mg/dL Total Bilirubin 0.9 (0.2-1.3) mg/dL AST 33 (14-36) U/L ALT 19 (4-34) U/L Alkaline Phosphatase 48 (38-126) U/L Total Protein 7.8 (6.3-8.2) g/dL Albumin 4.9 (3.5-5.0) g/dL Amylase 74 (30-110) U/L Lipase 222 (23-300) U/L Urine Color Light Yellow Urine Appearance Clear (Clear) Urine pH 6.5 (5.0-8.0) Ur Specific [place] 1.005 (1.001-1.035) Urine Protein Negative (Negative) Urine Glucose (UA) Negative (Negative) Urine Ketones Negative (Negative) Urine Blood Negative (Negative) Urine Nitrite Negative (Negative) Urine Bilirubin Negative (Negative) Urine Urobilinogen <2.0 (<2.0) mg/dL Ur Leukocyte Esterase Negative (Negative) Urine HCG, Qual (Not Detectd) 12/29/22 Range/Units 13:23 WBC (3.8-10.6) k/uL RBC (3.80-5.40) m/uL Hgb (11.4-16.0) gm/dL Hct (34.0-46.0) % MCV (80.0-100.0) fL MCH (25.0-35.0) pg MCHC (31.0-37.0) g/dL RDW (11.5-15.5) % Plt Count (150-450) k/uL MPV Neutrophils % % Lymphocytes % % Monocytes % % Eosinophils % % Basophils % % Neutrophils # (1.3-7.7) k/uL Lymphocytes # (1.0-4.8) k/uL Monocytes # (0-1.0) k/uL Eosinophils # (0-0.7) k/uL Basophils # (0-0.2) k/uL Sodium (137-145) mmol/L Potassium (3.5-5.1) mmol/L Chloride (98-107) mmol/L Carbon Dioxide (22-30) mmol/L Anion Gap mmol/L BUN (7-17) mg/dL Creatinine (0.52-1.04) mg/dL Est GFR (CKD-EPI)AfAm (>60 ml/min/1.73 sqM) Est GFR (CKD-EPI)NonAf (>60 ml/min/1.73 sqM) Glucose (74-99) mg/dL Calcium (8.4-10.2) mg/dL Total Bilirubin (0.2-1.3) mg/dL AST (14-36) U/L ALT (4-34) U/L Alkaline Phosphatase (38-126) U/L Total Protein (6.3-8.2) g/dL Albumin (3.5-5.0) g/dL Amylase (30-110) U/L Lipase (23-300) U/L Urine Color Urine Appearance (Clear) Urine pH (5.0-8.0) Ur Specific [place] (1.001-1.035) Urine Protein (Negative) Urine Glucose (UA) (Negative) Urine Ketones (Negative) Urine Blood (Negative) Urine Nitrite (Negative) Urine Bilirubin (Negative) Urine Urobilinogen (<2.0) mg/dL Ur Leukocyte Esterase (Negative) Urine HCG, Qual Not Detected (Not Detectd) Disposition Clinical Impression: Uterine mass, Uterine fibroid Disposition: HOME SELF-CARE Condition: Stable Instructions (If sedation given, give patient instructions): Pelvic Pain in Women (ED) Additional Instructions: Please follow-up with ROTARY ADJUSTER as directed concerning possible uterine fibroid or uterine massPlease return to the Emergency Department if symptoms worsen or any other concerns. Is patient prescribed a controlled substance at d/c from ED?: No Referrals: Nonstaff,Physician [REFERRING] - 1-2 days Corina Snyder DO [Doctor of Osteopathic Medicine] - 1-2 days Time of Disposition: 16:32
[2022-12-29 13:41] LABS: Basophils % (A) 1 %; Eosinophils # (A) 0.1 k/uL (0-0.7); Eosinophils % (A) 2 %; HCT 46.4 % (34.0-46.0); HGB 15.8 gm/dL (11.4-16.0); Lymphocytes # (A) 2.5 k/uL (1.0-4.8); Lymphocytes % (A) 38 %; MCH 30.7 pg (25.0-35.0); MCV 90.4 fL (80.0-100.0); Mean Platelet Volume 7.1; Monocytes # (A) 0.3 k/uL (0-1.0); Monocytes % (A) 4 %; Neutrophils # (A) 3.5 k/uL (1.3-7.7); Neutrophils % (A) 54 %; Platelet Count 249 k/uL (150-450); RBC 5.13 m/uL (3.80-5.40); RDW 12.2 % (11.5-15.5); WBC 6.5 k/uL (3.8-10.6)
[2022-12-29 13:54] VITALS: TEMP 98.4
[2022-12-29 13:58] LABS: Appearance,Urine Clear (Clear); Bilirubin,Urine Negative (Negative); Blood,Urine Negative (Negative); Color,Urine Light Yellow; Glucose,Urine (UA) Negative (Negative); Ketones,Urine Negative (Negative); Leukocyte Esterase,Urine Negative (Negative); Nitrite,Urine Negative (Negative); PH, Urine 6.5 (5.0-8.0); Protein,Urine Negative (Negative); Specific Gravity,Urine 1.005 (1.001-1.035); Urobilinogen,Urine <2.0 mg/dL (<2.0)
[2022-12-29 14:04] LABS: ALT 19 U/L (4-34); AST 33 U/L (14-36); African American GFR (CKD) >90 (>60 ml/min/1.73 sqM); Albumin 4.9 g/dL (3.5-5.0); Alkaline Phosphatase 48 U/L (38-126); Amylase 74 U/L (30-110); Anion Gap 11 mmol/L; Blood Urea Nitrogen 11 mg/dL (7-17); Calcium 9.8 mg/dL (8.4-10.2); Carbon Dioxide 24 mmol/L (22-30); Chloride 107 mmol/L (98-107); Glucose 105 mg/dL (74-99); Lipase 222 U/L (23-300); Non-African American GFR(CKD) >90 (>60 ml/min/1.73 sqM); Sodium 142 mmol/L (137-145); Total Bilirubin 0.9 mg/dL (0.2-1.3); Total Protein 7.8 g/dL (6.3-8.2)
[2022-12-29 14:05] LABS: Potassium 4.4 mmol/L (3.5-5.1)
[2022-12-29 14:19] VITALS: RESP 18
--- NOTE | 2022-12-29 15:23 | US ---
EXAMINATION TYPE: US transvaginal DATE OF EXAM: 12/29/2022 COMPARISON: NONE CLINICAL INDICATION: Female, 27 years old with history of pain right; Pain TECHNIQUE: Transvaginal (TV). EXAM MEASUREMENTS: Uterus: 8.1 x 5.5 x 6.7 cm Endometrial Stripe: Obscured Right Ovary: 2.8 x 1.7 x 2.1 cm Left Ovary: 3.1 x 1.7 x 1.6 cm 1. Uterus: Anteverted Heterogenous area measuring 4.5 x 4.8 x 5.2 cm. 2. Endometrium: obscured. 3. Right Ovary: wnl 4. Left Ovary: wnl Spectral, color and waveform doppler imaging shows good arterial and venous flow within the ovaries ; there is no evidence for ovarian torsion. 5. Bilateral Adnexa: wnl 6. Posterior cul-de-sac: wnl IMPRESSION: 1. There is a large uterine mass measuring 5.2 cm. Note is made the endometrium could not be visual ized. The finding is nonspecific. Could represent a uterine or endometrial mass. A neoplastic process, deana marisela or infectious etiology not excluded recommend CT scan. Case discussed with emergency room clinic
[2022-12-29 15:24] VITALS: PULSE 101
[2022-12-29 15:25] VITALS: BP 101/61
--- NOTE | 2022-12-29 16:22 | CT ---
EXAMINATION TYPE: CT abdomen pelvis w con DATE OF EXAM: 12/29/2022 COMPARISON: None HISTORY: Pelvic mass, Rt side abdominal pain CT DLP: 887.3 mGycm CONTRAST: CT scan of the abdomen and pelvis is performed without Oral Contrast and with IV Contrast, patient in jected with 100 mL of Isovue 300. FINDINGS: LUNG BASES-: No visible nodule. No infiltrate. LIVER/GB: No calcified gallstones. No space occupying hepatic lesion. Biliary tree is of normal ca liber. PANCREAS: No inflammation. No distinct mass. SPLEEN: No splenic enlargement. No lesion seen. ADRENALS: No nodule. No thickening. KIDNEYS/BLADDER: No hydronephrosis. No nephrolithiasis. No distinct renal mass. Urinary bladder g rossly unremarkable. BOWEL: Normal appendix. Normal bowel caliber. No inflammation. GENITAL ORGANS: There is evidence of uterine mass of uncertain etiology which may reflect leiomyoma s ubendometrial in location. Mass is difficult to measure however is estimated at 4.4 x 3.9 cm. No evid ence for ovarian mass. LYMPH NODES: No greater than 1cm abdominal or pelvic lymph nodes are appreciated. AORTA: No significant abnormality. OSSEOUS STRUCTURES: No significant abnormality is seen. OTHER: No significant additional abnormality is seen. IMPRESSION: 1. Uterine mass may reflect leiomyoma with subendometrial location. Mass of other etiology not exclud ed. Gynecology consult is advised.
== END 2022-12-29 16:43 | disposition home or self-care (01) ==
LOC: EC 12:48
DX: R19.09 Other intra-abdominal and pelvic swelling, mass and lump (principal); D25.1 Intramural leiomyoma of uterus; F41.9 Anxiety disorder, unspecified; F32.A Depression, unspecified; Z88.0 Allergy status to penicillin; Z91.040 Latex allergy status; Z79.899 Other long term (current) drug therapy
CPT/HCPCS: 36415; 80053; 82150; 83690; 85025; 81003; 81025; 93975; 76830; 74177; 99285; 96374; 96361 ×2; J1885; Q9967

== ENCOUNTER 2023-09-01 14:08 | Emergency (ER) | payer OTHER ==
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
[2023-09-01 15:13] VITALS: TEMP 98.5
[2023-09-01] MEDS: PROPARACAINE 0.5% OPHTH DROPS 15 ML BTL RIGHT EYE STA (16:44)
[2023-09-01] MEDS: FLUORESCEIN STRIPS 1 MG STRIP RIGHT EYE ONE (16:44)
[2023-09-01] MEDS: CIPROFLOXACIN 0.3% OPHTH SOLN 5 ML BTL RIGHT EYE ONE (17:26)
[2023-09-01 19:02] VITALS: BP 130/78; PULSE 68; RESP 16
== END 2023-09-01 18:39 | disposition home or self-care (01) ==
LOC: EC 14:08
DX: S05.01XA Injury of conjunctiva and corneal abrasion without foreign body, right eye, initial encounter (principal); Z88.0 Allergy status to penicillin; Z91.040 Latex allergy status; Z88.8 Allergy status to other drugs, medicaments and biological substances; W25.XXXA Contact with sharp glass, initial encounter
CPT/HCPCS: 99283

== ENCOUNTER → 2023-10-12 | Outpatient (CLI) | payer OTHER ==
--- NOTE | 2023-10-12 12:29 | MM ---
Reason for Exam: Clinical finding. Indicated Problems: Pain. Patient History: Menarche at age 19. First Full-Term at age 21. Currently using Hormonal Contraceptives, starting at age 23. Paternal grandmother had breast cancer. Tissue Density: The breasts are heterogeneously dense, which may obscure small masses. Findings: Analyzed By CAD. Nodular density seen below the level of the nipple left breast measuring 7 mm. Ultrasound is recommended. Benign calcifications seen bilaterally. No right breast mass is seen. Overall Assessment: Incomplete: need additional imaging evaluation, BI-RAD 0 Management: Diagnostic Breast Ultrasound of the left breast. . Results were given to the patient verbally at the time of exam. Patient should continue monthly self-breast exams. A clinical breast exam by your physician is recommended on an annual basis. This exam should not preclude additional follow-up of suspicious palpable abnormalities. Note on Mary scores and lifetime risk: 1. A Mary score greater than 3% is considered moderate risk. If this is the case, consider specialist referral to assess eligibility for a risk reducing agent. 2. If overall lifetime risk for the development of breast cancer is 20% or higher, the patient may qualify for future screening with alternating mammogram and breast MRI. Electronically signed and approved by: Jan Sen M.D. Radiologis
--- NOTE | 2023-10-12 12:44 | USB ---
Reason for Exam: Clinical finding. Patient History: Menarche at age 19. First Full-Term at age 21. Currently using Hormonal Contraceptives, starting at age 23. Paternal grandmother had breast cancer. Findings: The lower section of the breast of the left breast, the axilla of the left breast and the retroareolar of the left breast were scanned. Simple cyst left 4:00 position measuring 7 x 4 mm. No solid masses seen. Correlate clinically.. Overall Assessment: Benign, BI-RAD 2 Management: Screening Mammogram of both breasts at age 42. A clinical breast exam by your physician is recommended on an annual basis and results should be correlated with mammographic findings. This exam should not preclude additional follow-up of suspicious palpable abnormalities. Results were given to the patient verbally at the time of exam. Electronically signed and approved by: Jan Sen M.D. Radiologis
== END | disposition home or self-care (01) ==
LOC: RADMAMWWP 10:49
PROVIDERS: ATTEND Family Medicine
DX: R92.333 Mammographic heterogeneous density, bilateral breasts (principal); Z80.3 Family history of malignant neoplasm of breast
CPT/HCPCS: 77066; 76642; G0279; 77062

== ENCOUNTER 2024-02-05 14:18 | Emergency (ER) | payer OTHER ==
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
[2024-02-05 14:53] VITALS: BP 141/85; PULSE 74; RESP 18; TEMP 97.5
[2024-02-05] MEDS: PROPARACAINE 0.5% OPHTH DROPS 15 ML BTL RIGHT EYE STA (16:16)
[2024-02-05] MEDS: FLUORESCEIN STRIPS 1 MG STRIP RIGHT EYE ONE (16:16)
== END 2024-02-05 16:48 | disposition left against medical advice (07) ==
LOC: EC 14:18
DX: R51.9 Headache, unspecified (principal); Z88.0 Allergy status to penicillin; Z91.040 Latex allergy status; Z91.048 Other nonmedicinal substance allergy status; Z53.29 Procedure and treatment not carried out because of patient's decision for other reasons
CPT/HCPCS: 99283

== ENCOUNTER 2024-12-17 14:11 | Emergency (ER) | payer OTHER ==
[2024-12-17 14:16] VITALS: RESP 16
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
--- NOTE | 2024-12-17 15:32 | XR ---
EXAMINATION TYPE: XR wrist complete LT DATE OF EXAM: 12/17/2024 3:25 PM COMPARISON: None. CLINICAL INDICATION: Female, 29 years old with history of fall, pain, pain TECHNIQUE: 4 view(s) obtained. FINDINGS: No acute fracture or dislocation evident. Soft tissues appear normal. Joint spaces are preserved. If there is pain at the anatomic snuff box, nuclear medicine bone scan could be performed for additio nal evaluation. Follow up exams can be performed 7-10 days from acute trauma for continued pain. IMPRESSION: 1. No acute osseous abnormalities left wrist [facility] Rachna Hunter, , 12/17/2024 3:30 PM
[2024-12-17] MEDS: ACETAMINOPHEN TAB 325 MG TAB PO STA (16:10)
[2024-12-17 16:16] VITALS: BP 121/76; PULSE 80; TEMP 98
== END 2024-12-17 16:31 | disposition home or self-care (01) ==
LOC: EC 14:11
DX: S63.502A Unspecified sprain of left wrist, initial encounter (principal); Z88.0 Allergy status to penicillin; Z91.040 Latex allergy status; Z88.8 Allergy status to other drugs, medicaments and biological substances; W01.0XXA Fall on same level from slipping, tripping and stumbling without subsequent striking against object, initial encounter
CPT/HCPCS: 99283